=== PATIENT | male | born 1990 | race Caucasian/White ===

== ENCOUNTER 2022-12-20 06:51 | Outpatient (CLI) | payer OTHER, SELFPAY ==
--- NOTE | ~2022-12-20 | MR_ITS ---
MRI of the lumbar spine Clinical History: Back pain Technique: Axial T2-weighted images, and sagittal T1-weighted, T2-weighted, and T2 fat-sat images wer e acquired. Findings: There is no fracture or subluxation of the lumbar spine. Vertebral bodies maintain normal h eight and alignment. No suspicious bone marrow signal abnormality seen. At L1-L2 and L2-L3, there is no disc bulge or herniation. There are moderate facet joint degenerative changes at these levels. No spinal canal stenosis or neural foraminal narrowing at these levels. L3-L4, there is disc protrusion at the central to left foraminal region, which in conjunction with mo derate facet arthropathy, results in moderate to severe thecal sac compression. There is severe left neural foraminal narrowing and minimal right neural foraminal narrowing. At L4-L5, disc bulge and facet arthropathy are present, with minimal central canal stenosis. There is moderate to severe left neural foraminal narrowing, and severe right neural foraminal narrowing. At L5-S1, there is mild diffuse disc bulge with severe facet arthropathy. No central canal stenosis. There is mild to moderate right neural foraminal narrowing. Left neural foramen is minimally narrowed . Paravertebral soft tissues are unremarkable. Impression: Severe degenerative spondylosis at L3-L4, as detailed above. Moderate to advanced degenerative spondylosis at L4-L5, as detailed above. [id number] degenerative spondylosis at L5-S1, as detailed above. Reviewed, dictated and finalized at [facility]. Impression: Severe degenerative spondylosis at L3-L4, as detailed above. Moderate to advanced degenerative spondylosis at L4-L5, as detailed above. [id number] degenerative spondylosis at L5-S1, as detailed above.
== END 2022-12-20 06:52 ==
PROVIDERS: PCP Physician Assistant Medical; Visit Provider Physician Assistant Medical
DX: M47.816 Spondylosis without myelopathy or radiculopathy, lumbar region (principal)
CPT/HCPCS: 72148